=== PATIENT | female | born 1930 | race Caucasian/White ===

== ENCOUNTER 2016-10-20 | Outpatient (CLI) | payer MEDICARE, OTHER | END 2016-10-20 07:33 | disposition critical access hospital (66) | CPT/HCPCS: A0425; A0427 ==

== ENCOUNTER 2016-10-20 07:42 | Emergency (ER) | payer MEDICARE, OTHER ==
[2016-10-20] MEDS ORDERED: ONDANSETRON 4 MG/2 ML VIAL IVP STA (07:51)
[2016-10-20] MEDS ORDERED: SODIUM CHLORIDE 0.9% 1,000 ML IV ONE (07:51)
[2016-10-20] MEDS ORDERED: MECLIZINE 12.5 MG TABLET PO STA (07:51)
[2016-10-20] MEDS ORDERED: MECLIZINE 12.5 MG TABLET PO ONE (07:54)
[2016-10-20] MEDS ORDERED: ONDANSETRON 4 MG/2 ML VIAL ONE (07:54)
== END 2016-10-20 09:56 | disposition home or self-care (01) ==
DX: R42 Dizziness and giddiness (principal); R11.2 Nausea with vomiting, unspecified; R00.8 Other abnormalities of heart beat; D64.9 Anemia, unspecified; I10 Essential (primary) hypertension; J44.9 Chronic obstructive pulmonary disease, unspecified
CPT/HCPCS: 36415; 80053; 83690; 85025; 93005; 93010; 96374; 99283; 99284; A9270

== ENCOUNTER 2017-04-28 08:08 | Outpatient (CLI) | payer MEDICARE, OTHER | END 2017-04-28 08:09 | disposition critical access hospital (66) | LOC: EMS 08:08 | PROVIDERS: ATTEND Surgery | DX: T63.441A Toxic effect of venom of bees, accidental (unintentional), initial encounter (principal); L29.8 Other pruritus; Y92.009 Unspecified place in unspecified non-institutional (private) residence as the place of occurrence of the external cause | CPT/HCPCS: A0425; A0427 ==

== ENCOUNTER 2017-04-28 08:19 | Emergency (ER) | payer MEDICARE, OTHER ==
[2017-04-28] MEDS ORDERED: DEXAMETHASONE 10 MG/ML VIAL PO STA (08:27)
--- NOTE | 2017-04-28 08:32 | ED Physician Documentation ---
History of Present Illness - Stated complaint Stated Complaint: BEE STING REACTION - Chief complaint Chief Complaint: Wound - Additonal information Additional information: hx from pt 87 f stung my bees on face neck and arms while gardening hx local swelling 2/2 bees no hx anaphylaxis no oral swelling or soa received benadryl by EMS [employer]boat [employer] Review of Systems Constitutional: denies: Fever, Chills Throat: denies: Sore throat Respiratory: denies: Dyspnea, Cough Skin: reports: Bite / sting PD PAST MEDICAL HISTORY - Past Medical History Past Medical History: Yes Cardiovascular: Hypertension Respiratory: COPD GI: GERD : Incontinence HEENT: Chronic hearing loss Psych: Depression Musculoskeletal: Osteoarthritis - Past Surgical History Past Surgical History: Yes Ortho: Arthroscopic surgery /HISTOLOGY TECHNOLOGIST: Hysterectomy - Present Medications Home Medications: Ambulatory Orders Medication Instructions Recorded Confirmed Esomeprazole Magnesium [Nexium] 40 mg PO DAILY 03/24/13 04/28/17 Tolterodine Tartrate [Detrol] 4 mg PO DAILY 03/24/13 04/28/17 - Allergies Allergies/Adverse Reactions: Allergies Allergy/AdvReac Type Severity Reaction Status Date / Time erythromycin base Allergy Emesis Verified 04/16/16 15:07 [Erythromycin Base] - Social History Does the pt smoke?: No Smoking Status: Never smoker Does the pt drink ETOH?: Yes Does the pt have substance abuse?: No - Immunizations Immunizations are current?: Yes - POLST Patient has POLST: No PD ED PE NORMAL - Vitals Vital signs reviewed: Yes - General General: Alert and oriented X 3 - HEENT HEENT: Other (no oral swelling) - Cardiac Cardiac: RRR - Respiratory Respiratory: No respiratory distress, Clear bilaterally - Derm Derm: Other (numerous stongs with local erythema and slight swelling to left periorbital region and neck and both arms, no retained stingers) Results - Vitals Vitals: Vital Signs - 24 hr 04/28/17 04/28/17 08:19 08:51 Temperature 36.7 C Heart Rate 86 92 Respiratory 17 18 Rate Blood Pressure 189/81 H 171/76 H O2 Saturation 95 97 Oxygen O2 Source Room air PD MEDICAL DECISION MAKING - ED course ED course: pt observed - no progression of sx Departure - Departure Disposition: 01 Home, Self Care Clinical Impression: Bee sting reaction Qualifiers: Encounter type: initial encounter Injury intent: accidental or unintentional Qualified Code(s): T63.441A - Toxic effect of venom of bees, accidental ( unintentional), initial encounter Condition: Good Instructions: ED Bite Sting Insect Local Allergic React Comments: The dose of steroids we gave you in the ER should last several days and will keep the swelling down. You can take a non sedating antihistamine such as claritin once a day as needed for itching - starting this afternoon when the benadryl wears off Follow up with your PMD to get your blood pressure rechecked Return if worse
[2017-04-28] MEDS ORDERED: DEXAMETHASONE 10 MG/ML VIAL ONE (08:44)
[2017-04-28] MEDS ORDERED: HYDROCORTISONE 1% CREAM 28 GM TUBE TOP STA (09:18)
[2017-04-28 09:54] VITALS: BP 170/80
== END 2017-04-28 09:52 | disposition home or self-care (01) ==
LOC: EDUNIT# → ED 08:19
DX: T63.441A Toxic effect of venom of bees, accidental (unintentional), initial encounter (principal); I10 Essential (primary) hypertension
CPT/HCPCS: 99283; A9270